=== PATIENT | female | born 1950 | race Caucasian/White ===

== ENCOUNTER 2022-03-07 09:57 | Inpatient (IN) | payer SELFPAY ==
[~2022-03-07] VITALS: Ht 152.4 cm; Wt 49.9 kg
--- NOTE | 2022-03-07 10:14 | NUR ---
PT IS IN BED #1A. DR GARCIA EVALUATED THE PT.
[2022-03-07] MEDS ORDERED: ASPIRIN 81 MG TAB.CHEW PO ONE (10:15)
[2022-03-07] MEDS ORDERED: ASPIRIN 81 MG TAB.CHEW ONE (10:17)
[2022-03-07 10:41] LABS: HEMATOCRIT 40.9 % (31.2-41.9); MEAN CORPUSCULAR HEMOGLOBIN 31.7 uug (24.7-32.8); MEAN CORPUSCULAR VOLUME 93.2 fL (75.5-95.3); PLATELET COUNT (AUTO) 218 K/uL (179-408)
[2022-03-07 11:01] LABS: CARBON DIOXIDE 24 mmol/L (21-32); CHLORIDE 107 mmol/L (98-107); CREATININE 0.6 mg/dL (0.6-1.3); GLUCOSE 109 mg/dL (74-106); POTASSIUM 3.7 mmol/L (3.5-5.1); UREA NITROGEN, BLOOD 15 mg/dL (7-18)
[2022-03-07] MEDS ORDERED: CLONAZEPAM 0.5 MG TABLET PO ONE (11:30)
[2022-03-07] MEDS ORDERED: CLONAZEPAM 0.5 MG TABLET ONE (12:13)
[2022-03-07] MEDS ORDERED: MAGNESIUM HYDROXIDE 30 ML LIQUID UDC PO PRN (18:15)
--- NOTE | 2022-03-07 19:27 | NUR ---
called for bed. no beds available
--- NOTE | 2022-03-07 20:34 | NUR ---
PATIENT IN BED WATCHING TV. NAD NOTED
--- NOTE | 2022-03-07 23:41 | NUR ---
report given to Tamiko EMERSON
--- NOTE | 2022-03-07 23:41 | NUR ---
patient will go to TELE room [address] Xinog
--- NOTE | 2022-03-07 23:55 | NUR ---
spoke with Tamiko EMERSON. Patient will go to room room 301B instead of 324
[2022-03-08 00:30] VITALS: BP 132/66
--- NOTE | 2022-03-08 00:46 | NUR ---
Pt. admitted to tele room 301 B , under care of Dr. Velasquez Belongs List completed
[2022-03-08] MEDS: TEMAZEPAM 15 MG CAPSULE PO PRN ×2 (01:24→21:52)
[2022-03-08 04:00] VITALS: BP 136/56
--- NOTE | 2022-03-08 05:48 | NUR ---
Admitted to Tele, SR/SB on monitor. Able to make needs known, Malian speaking. Denies chest pain at this time. No labored breathing or SOB. IV site intact. Safety maintained. Will endorse to day shift.
[2022-03-08] MEDS: PANTOPRAZOLE SODIUM 40 MG TABLET.DR PO SCH (06:29)
[2022-03-08 06:40] LABS: HEMATOCRIT 40.7 % (31.2-41.9); MEAN CORPUSCULAR HEMOGLOBIN 31.5 uug (24.7-32.8); MEAN CORPUSCULAR VOLUME 93.5 fL (75.5-95.3); PLATELET COUNT (AUTO) 202 K/uL (179-408)
[2022-03-08 07:27] LABS: BILIRUBIN,TOTAL 0.4 mg/dL (0.2-1.0); CREATININE 0.8 mg/dL (0.6-1.3); PHOSPHOROUS 3.7 mg/dL (2.5-4.9); POTASSIUM 3.7 mmol/L (3.5-5.1); TOTAL PROTEIN, SERUM 6.5 g/dL (6.4-8.2)
[2022-03-08 07:29] LABS: THYROID STIMULATING HORMONE 2.422 mIU/mL (0.358-3.740)
[2022-03-08] MEDS: ASPIRIN EC 81 MG TABLET.DR PO SCH (08:15)
[2022-03-08] MEDS: ONDANSETRON 4 MG/2 ML VIAL IV PRN (11:04)
[2022-03-08 12:00] VITALS: BP 137/56
[2022-03-08 16:00] VITALS: BP 145/64
[2022-03-08] MEDS ORDERED: BISACODYL 10 MG SUPP.RECT RC PRN (18:15)
[2022-03-08 20:33] VITALS: BP 128/71
[2022-03-08] MEDS: ACETAMINOPHEN 325 MG TABLET PO PRN (20:57)
[2022-03-08] MEDS: DOCUSATE SODIUM 100 MG CAPSULE PO SCH (20:57)
[2022-03-09 00:17] VITALS: BP 143/59
[2022-03-09] MEDS: ACETAMINOPHEN 325 MG TABLET PO PRN ×2 (02:47→23:22)
[2022-03-09 04:14] VITALS: BP 142/63
[2022-03-09] MEDS: PANTOPRAZOLE SODIUM 40 MG TABLET.DR PO SCH (06:02)
--- NOTE | 2022-03-09 06:51 | NUR ---
Patient slept intermittently.Norwegian speaking.Denies chest pain.On RA.No s/s of distress noted.C/o abd'l pain. Tylenol given PRN with relieved. All needs anticipated and met accordingly.Call light with in reach. Will endorse to oncoming shift.
--- NOTE | 2022-03-09 08:00 | NUR ---
AWAKE ALERT AND FORGETFUL NO SS OF PAIN, SR ON MONITOR. C/O CONSTIPATION WILL OBSERVE
[2022-03-09] MEDS: ASPIRIN EC 81 MG TABLET.DR PO SCH (08:26)
[2022-03-09] MEDS ORDERED: MAGNESIUM CITRATE 296 ML BOTTLE PO ONE (10:00)
[2022-03-09] MEDS: ONDANSETRON 4 MG/2 ML VIAL IV PRN ×2 (10:56→12:11)
[2022-03-09 11:30] VITALS: BP 144/70
--- NOTE | 2022-03-09 12:00 | NUR ---
NO ACUTE CHANGE FROM AM ASSESSMENT, REMAINS SR ON MONITOR
[2022-03-09] MEDS: ENSURE ENLIVE (VAN) 240 ML LIQUID PO SCH (13:45)
--- NOTE | 2022-03-09 16:36 | NUR ---
NO C/O OF CP OR SOB, STILL NO BM FROM [facility]. WILL CONTINUE TO MONITOR4. SR ON MONITOR 70 AND ABOVE/MIN
[2022-03-09 17:00] VITALS: BP 143/71
[2022-03-09 20:10] VITALS: BP 128/62
[2022-03-09] MEDS: DOCUSATE SODIUM 100 MG CAPSULE PO SCH (20:41)
[2022-03-09] MEDS ORDERED: CLONAZEPAM 0.5 MG TABLET PO PRN (21:45)
[2022-03-09] MEDS: TEMAZEPAM 15 MG CAPSULE PO PRN (23:22)
[2022-03-10 04:42] VITALS: BP 130/64
[2022-03-10] MEDS: ONDANSETRON 4 MG/2 ML VIAL IV PRN (06:02)
[2022-03-10] MEDS: PANTOPRAZOLE SODIUM 40 MG TABLET.DR PO SCH (06:02)
--- NOTE | 2022-03-10 06:39 | NUR ---
Patient had small BM x2. C/o nausea. Zofran IVP given.Compliant with medication.Dulcolax supp given.Dc'd tele as ordered. Call light with in reach. Will endorsed to oncoming shift.
[2022-03-10 07:03] LABS: HEMATOCRIT 41.5 % (31.2-41.9); MEAN CORPUSCULAR HEMOGLOBIN 32.2 uug (24.7-32.8); MEAN CORPUSCULAR VOLUME 92.9 fL (75.5-95.3); PLATELET COUNT (AUTO) 219 K/uL (179-408)
[2022-03-10 07:51] LABS: CREATININE 0.9 mg/dL (0.6-1.3); MAGNESIUM 2.8 mg/dL (1.8-2.4); PHOSPHOROUS 3.8 mg/dL (2.5-4.9); POTASSIUM 3.8 mmol/L (3.5-5.1)
--- NOTE | 2022-03-10 08:00 | NUR ---
AWAKE ALERT SPEAKS [place], REQUIRES CARDIOTHORACIC ICU RN TOTAL ASSIST IN ALL AREAS OF ADLS. SR ON MONITOR. CONTINUE NPO FOR CT ABDOMEN WITH CONTRAST
[2022-03-10] MEDS: ASPIRIN EC 81 MG TABLET.DR PO SCH (08:22)
[2022-03-10] MEDS: ENSURE ENLIVE (VAN) 240 ML LIQUID PO SCH (08:22)
[2022-03-10] MEDS ORDERED: SWABABLE VALVE TRANSFER SET EA MC ONE (09:18)
[2022-03-10] MEDS ORDERED: IV NORMAL SALINE 250 ML IV ONE (09:18)
[2022-03-10] MEDS ORDERED: IOHEXOL 300MG/ML 100 ML INFUS..BTL ONE (09:18)
--- NOTE | 2022-03-10 11:29 | NUR ---
CT ABDOMEN WITH CONTRAST DONE AWAITING RESULTS, NO ACUTE CHANGE FROM MORNING ASSESSMENT
[2022-03-10 11:42] VITALS: BP 130/61
[2022-03-10] MEDS ORDERED: CLON2TAB11 PO (13:03)
[2022-03-10 16:48] VITALS: BP 124/61
--- NOTE | 2022-03-10 18:45 | NUR ---
DR ASHFORD CALLED AND SAID OK TO DISCHARGE PATIENT AND ADDITIONAL MEDS TO FOLLOW AND PATIENT TO PICK-UP TO HER PHARMACY.
[2022-03-10 19:23] LABS: *BILIRUBIN,URIN NEGATIVE (NEGATIVE); *BLOOD, URINE 1+ (NEGATIVE); *CLARITY,URINE CLEAR (CLEAR); *COLOR,URINE YELLOW (YELLOW); *KETONES,URINE NEGATIVE (NEGATIVE); *UROBILINOGEN,URINE 0.2 E.U./dl (NORMAL); LEUKOCYTE ESTERASE ,URINE NEGATIVE (NEGATIVE); NITRITE, URINE NEGATIVE (NEGATIVE); PH,URINE 5.5 (5.0-8.0); UGLUCOSE NEGATIVE (NEGATIVE)
[2022-03-10] MEDS ORDERED: DOCU-141 PO (19:33)
[2022-03-10] MEDS ORDERED: ATOR10TA PO (19:33)
[2022-03-11 01:12] LABS: BACTERIA,URINE NONE SEEN /HPF (NONE SEEN); SQUAMOUS EPITHELIAL CELL,UR FEW /HPF (NONE SEEN); WBC,URINE NONE SEEN /HPF (0-3)
[2022-03-11] MEDS ORDERED: CLON1TAB12 PO (13:23)
== END 2022-03-10 19:45 | disposition home or self-care (01) | DRG 206 ==
LOC: ER 09:57 → TELE3 23:55 → MEDSURG3 03-09 22:47
PROVIDERS: ADMIT Internal Medicine; ATTEND Internal Medicine
DX: M94.0 Chondrocostal junction syndrome [Tietze] (principal); M25.512 Pain in left shoulder; R10.9 Unspecified abdominal pain; E78.5 Hyperlipidemia, unspecified; F41.9 Anxiety disorder, unspecified; I70.0 Atherosclerosis of aorta; K59.00 Constipation, unspecified; Z20.822 Contact with and (suspected) exposure to COVID-19; Z87.891 Personal history of nicotine dependence; R20.0 Anesthesia of skin; M51.9 Unspecified thoracic, thoracolumbar and lumbosacral intervertebral disc disorder
CPT/HCPCS: 36415; 70450; 71045; 74018; 83550; 83735; 84100; 84443; 84484; 85025; 87086; 93005; A4663; G0378; J2405; Q9967